=== PATIENT | female | born 1995 | race Caucasian/White ===

== ENCOUNTER 2018-12-17 11:53 | Inpatient (IN) | payer OTHER ==
[2018-12-17 12:50] LABS: ADD UMIC YES; UR ASCORBIC ACID 20 mg/dL (NEGATIVE); UR BACTERIA FEW /HPF (NONE SEEN); UR BILIRUBIN (Dip) NEGATIVE (NEGATIVE); UR BLOOD (Dip) 2+ mg/dL (NEGATIVE); UR CLARITY SLIGHTLY CLOUDY (CLEAR); UR COLOR YELLOW (YELLOW); UR GLUCOSE (Dip) NEGATIVE (NEGATIVE); UR KETONES (Dip) NEGATIVE (NEGATIVE); UR LEUKOCYTE ESTERASE (Dip) 2+ Leu/ul (NEGATIVE); UR MUCUS FEW /HPF (NONE SEEN); UR NITRITE (Dip) NEGATIVE (NEGATIVE); UR RBC 1 /HPF (0-5); UR SQUAMOUS EPITHELIAL CELL FEW /HPF (FEW); UR TOTAL PROTEIN (Dip) NEGATIVE (NEGATIVE); UR UROBILINOGEN (Dip) NEGATIVE (NEGATIVE); UR WBC 3 /HPF (0-5)
[2018-12-17] MEDS ORDERED: BETAMET NA PHOS/AC(6 MG/ML) 2 ML INJ SYG IM (14:00)
[2018-12-17] MEDS ORDERED: CA GLUCONATE (GM) 10% 10ML INJ IV (14:30)
[2018-12-17 15:00] LABS: ADD MAN DIFF? NO
[2018-12-17 15:02] LABS: BASOPHILS % 0.3 % (0.0-2.0); EOSINOPHILS # 0.1 10^3/ul (0.0-0.5); EOSINOPHILS % 0.8 % (0.0-7.0); HEMATOCRIT 34.4 % (37.0-47.0); HEMOGLOBIN 11.6 g/dl (12.0-16.0); LYMPHOCYTES # 1.6 10^3/ul (0.8-2.9); LYMPHOCYTES % 26.1 % (15.0-51.0); MEAN CORPUSCULAR HEMOGLOBIN 31.8 pg (29.0-33.0); MEAN CORPUSCULAR HGB CONC 33.7 g/dl (32.0-37.0); MEAN CORPUSCULAR VOLUME 94.2 fl (82.0-101.0); MEAN PLATELET VOLUME 8.7 fl (7.4-10.4); MONOCYTE # 0.5 10^3/ul (0.3-0.9); MONOCYTES % 7.2 % (0.0-11.0); NEUTROPHIL # 4.1 10^3/ul (1.6-7.5); PLATELET COUNT 163 10^3/UL (140-415); RED BLOOD COUNT 3.65 10^6/ul (4.20-5.40)
[2018-12-17 15:02] LABS: WHITE BLOOD COUNT 6.3 10^3/ul (4.8-10.8)
[2018-12-17] MEDS: LACTATED RINGER'S 1,000 ML IV (15:20)
[2018-12-17 15:22] LABS: ALANINE AMINOTRANSFERASE 12 IU/L (13-69); ALBUMIN 3.4 g/dl (3.3-4.9); ALBUMIN/GLOBULIN RATIO 1.13; ALKALINE PHOSPHATASE 102 IU/L (42-121); ANION GAP 7 (5-13); ASPARTATE AMINO TRANSFERASE 15 IU/L (15-46); BILIRUBIN,INDIRECT 0.5 mg/dl (0-1.1); BILIRUBIN,TOTAL 0.5 mg/dl (0.2-1.3); BLOOD UREA NITROGEN 9 mg/dl (7-20); CALCIUM 9.3 mg/dl (8.4-10.2); CARBON DIOXIDE 23 mmol/L (21-31); CHLORIDE 107 mmol/L (97-110); Estimated GFR > 60 mL/min (>60); GLUCOSE 87 mg/dl (70-220); POTASSIUM 3.9 mmol/L (3.5-5.1); SODIUM 137 mmol/L (135-144); TOTAL PROTEIN 6.4 g/dl (6.1-8.1)
[2018-12-17] MEDS: MAGNESIUM SULFATE 4 GM/100 ML 100 ML IV (15:28)
[2018-12-17] MEDS: MAGNESIUM SULFATE 20 GM/500 ML 500 ML IV (15:34)
[2018-12-17] MEDS: BETAMET NA PHOS/AC(6 MG/ML) 2 ML INJ SYG IM (16:23)
[2018-12-17] MEDS: NITROFURANTOIN (SR) 100 MG CAP PO (22:02)
[2018-12-18] MEDS: LACTATED RINGER'S 1,000 ML IV ×2 (01:50→13:36)
[2018-12-18] MEDS: MAGNESIUM SULFATE 20 GM/500 ML 500 ML IV ×3 (01:53→23:56)
[2018-12-18 09:02] LABS: MAGNESIUM 4.9 mg/dl (1.7-2.5)
[2018-12-18] MEDS: FERROUS SULFATE (EC) 325 MG TAB PO (09:53)
[2018-12-18] MEDS: PRENATAL VITAMIN PO (09:53)
[2018-12-18] MEDS: NITROFURANTOIN (SR) 100 MG CAP PO (09:53)
[2018-12-18] MEDS: ONDANSETRON 4 MG INJ IV (12:03)
[2018-12-18 12:34] LABS: MAGNESIUM 5.2 mg/dl (1.7-2.5)
[2018-12-18] MEDS: ACETAMINOPHEN 325 MG TAB PO (12:38)
[2018-12-18] MEDS: BETAMET NA PHOS/AC(6 MG/ML) 2 ML INJ SYG IM (15:56)
[2018-12-18 18:44] LABS: MAGNESIUM 5.1 mg/dl (1.7-2.5)
[2018-12-19 00:56] LABS: MAGNESIUM 4.9 mg/dl (1.7-2.5)
[2018-12-19] MEDS: LACTATED RINGER'S 1,000 ML IV (02:28)
[2018-12-19] MEDS: MAGNESIUM SULFATE 20 GM/500 ML 500 ML IV ×2 (06:20→10:37)
[2018-12-19 07:11] LABS: MAGNESIUM 5.2 mg/dl (1.7-2.5)
[2018-12-19] MEDS: PRENATAL VITAMIN PO (09:22)
[2018-12-19] MEDS: FERROUS SULFATE (EC) 325 MG TAB PO (09:22)
[2018-12-19 12:58] LABS: MAGNESIUM 5.2 mg/dl (1.7-2.5)
== END 2018-12-19 17:35 | disposition home or self-care (01) | DRG 832 ==
LOC: OBT 11:53 → PP1 12-18 06:13 → L-D 11:53 → OBT 14:28 → L-D 14:06
DX: O47.03 False labor before 37 completed weeks of gestation, third trimester (principal); O26.873 Cervical shortening, third trimester; Z3A.33 33 weeks gestation of pregnancy
CPT/HCPCS: 76817; 76818; 80053; 81001; 83735; 85025; 87086

== ENCOUNTER 2019-01-20 16:15 | Inpatient (IN) | payer OTHER ==
[2019-01-20 17:47] LABS: ADD UMIC YES; UR ASCORBIC ACID NEGATIVE (NEGATIVE); UR BILIRUBIN (Dip) NEGATIVE (NEGATIVE); UR BLOOD (Dip) NEGATIVE (NEGATIVE); UR CLARITY SLIGHTLY CLOUDY (CLEAR); UR COLOR STRAW (YELLOW); UR GLUCOSE (Dip) NEGATIVE (NEGATIVE); UR KETONES (Dip) NEGATIVE (NEGATIVE); UR LEUKOCYTE ESTERASE (Dip) 2+ Leu/ul (NEGATIVE); UR NITRITE (Dip) NEGATIVE (NEGATIVE); UR RBC 1 /HPF (0-5); UR SPECIFIC GRAVITY (Dip) 1.006 (1.003-1.030); UR SQUAMOUS EPITHELIAL CELL FEW /HPF (FEW); UR TOTAL PROTEIN (Dip) NEGATIVE (NEGATIVE); UR UROBILINOGEN (Dip) NEGATIVE (NEGATIVE); UR WBC 16 /HPF (0-5)
[2019-01-20] MEDS ORDERED: CARBOPROST 250 MCG INJ IM (20:30)
[2019-01-20] MEDS ORDERED: LIDOCAINE 1% (MPF) 30 ML INJ INJ (20:30)
[2019-01-20] MEDS ORDERED: IBUPROFEN 600 MG TAB PO (20:30)
[2019-01-20] MEDS ORDERED: MISOPROSTOL 200 MCG TAB PR (20:30)
[2019-01-20] MEDS ORDERED: METHYLERGONOVINE 0.2 MG INJ IM (20:30)
[2019-01-20] MEDS ORDERED: OXYTOCIN 30 UNITS/LR 500 ML IV (20:30)
[2019-01-20] MEDS: LACTATED RINGER'S 1,000 ML IV ×2 (21:29→23:00)
[2019-01-20 21:51] LABS: ADD MAN DIFF? NO
[2019-01-20 21:56] LABS: BASOPHILS % 0.3 % (0.0-2.0); EOSINOPHILS % 0.6 % (0.0-7.0); HEMATOCRIT 37.6 % (37.0-47.0); HEMOGLOBIN 12.9 g/dl (12.0-16.0); LYMPHOCYTES # 1.9 10^3/ul (0.8-2.9); LYMPHOCYTES % 27.2 % (15.0-51.0); MEAN CORPUSCULAR HEMOGLOBIN 31.6 pg (29.0-33.0); MEAN CORPUSCULAR HGB CONC 34.3 g/dl (32.0-37.0); MEAN CORPUSCULAR VOLUME 92.2 fl (82.0-101.0); MEAN PLATELET VOLUME 9.4 fl (7.4-10.4); MONOCYTE # 0.5 10^3/ul (0.3-0.9); MONOCYTES % 6.8 % (0.0-11.0); NEUTROPHIL # 4.5 10^3/ul (1.6-7.5); NEUTROPHILS % 64.7 % (39.0-77.0); PLATELET COUNT 173 10^3/UL (140-415); RED BLOOD COUNT 4.08 10^6/ul (4.20-5.40); RED CELL DISTRIBUTION WIDTH 13.1 % (11.5-14.5)
[2019-01-20 21:56] LABS: WHITE BLOOD COUNT 6.9 10^3/ul (4.8-10.8)
[2019-01-20 22:16] LABS: PROTIME 12.3 Sec (11.9-14.9)
[2019-01-20 22:17] LABS: PARTIAL THROMBOPLASTIN TIME 25.8 Sec (23.0-35.0)
[2019-01-20] MEDS: CEFAZOLIN 2 GM/50 ML (PMX) 50 ML IVPB (22:37)
[2019-01-20 22:42] LABS: HEPATITIS B SURFACE ANTIGEN NEGATIVE (NEGATIVE)
[2019-01-21] MEDS: CEPHALEXIN 500 MG CAP PO ×4 (00:02→19:02)
[2019-01-21] MEDS: LACTATED RINGER'S 1,000 ML IV ×3 (06:58→18:03)
[2019-01-21] MEDS: OXYTOCIN 30 UNITS/LR 500 ML IV ×3 (08:31→22:39)
[2019-01-21] MEDS: BUTORPHANOL 2 MG INJ IV (18:02)
[2019-01-21] MEDS ORDERED: FENTAnyl 2MCG/ML-ROPIV 0.2% 100 ML (18:29)
[2019-01-21] MEDS ORDERED: ONDANSETRON 4 MG INJ IV ×2 (18:30→23:30)
[2019-01-21] MEDS ORDERED: FENTAnyl 2MCG/ML-ROPIV 0.2% 100 ML BAG EPI (18:30)
[2019-01-21] MEDS ORDERED: NALOXONE (0.4 MG/ML) INJ IV (18:30)
[2019-01-21] MEDS ORDERED: DIPHENHYDRAMINE 50 MG INJ IV (18:30)
[2019-01-21 20:20] LABS: RAPID PLASMA REAGIN NONREACTIVE (NR)
[2019-01-21] MEDS: MINERAL OIL LIGHT 10 ML VIAL TOP (22:18)
[2019-01-21] MEDS ORDERED: CARBOPROST 250 MCG INJ IM (23:30)
[2019-01-21] MEDS ORDERED: ACETAMINOPHEN 325 MG TAB PO (23:30)
[2019-01-21] MEDS ORDERED: MISOPROSTOL 200 MCG TAB PR (23:30)
[2019-01-21] MEDS ORDERED: OXYTOCIN 30 UNITS/LR 500 ML IV (23:30)
[2019-01-21] MEDS ORDERED: METHYLERGONOVINE 0.2 MG INJ IM (23:30)
[2019-01-21] MEDS ORDERED: OXYCODONE/ASPIRIN (4.88/325) TAB PO (23:30)
[2019-01-21] MEDS ORDERED: NACL 0.9% 3 ML SYG IV (23:30)
[2019-01-22] MEDS: IBUPROFEN 600 MG TAB PO ×5 (00:29→23:45)
[2019-01-22] MEDS: OXYTOCIN 30 UNITS/LR 500 ML IV (02:46)
[2019-01-22] MEDS: LANOLIN HPA 1 PKT TOP (02:47)
[2019-01-22] MEDS: WITCH HAZEL/GLYCERIN PAD PR (02:47)
[2019-01-22] MEDS: BENZOCAINE 20% 56 ML SPRAY TOP (02:47)
[2019-01-22 08:14] LABS: ADD MAN DIFF? NO
[2019-01-22 08:17] LABS: WHITE BLOOD COUNT 11.3 10^3/ul (4.8-10.8)
[2019-01-22 08:17] LABS: BASOPHILS % 0.2 % (0.0-2.0); EOSINOPHILS % 0.4 % (0.0-7.0); HEMATOCRIT 36.2 % (37.0-47.0); HEMOGLOBIN 12.6 g/dl (12.0-16.0); LYMPHOCYTES # 1.9 10^3/ul (0.8-2.9); LYMPHOCYTES % 16.5 % (15.0-51.0); MEAN CORPUSCULAR HEMOGLOBIN 31.8 pg (29.0-33.0); MEAN CORPUSCULAR HGB CONC 34.8 g/dl (32.0-37.0); MEAN CORPUSCULAR VOLUME 91.4 fl (82.0-101.0); MEAN PLATELET VOLUME 9.3 fl (7.4-10.4); MONOCYTE # 0.7 10^3/ul (0.3-0.9); MONOCYTES % 6.4 % (0.0-11.0); NEUTROPHIL # 8.6 10^3/ul (1.6-7.5); NEUTROPHILS % 76.2 % (39.0-77.0); PLATELET COUNT 157 10^3/UL (140-415); RED BLOOD COUNT 3.96 10^6/ul (4.20-5.40); RED CELL DISTRIBUTION WIDTH 12.8 % (11.5-14.5)
[2019-01-22] MEDS: SENNA/DOCUSATE NA (8.6MG/50MG) TAB PO ×2 (08:45→23:44)
[2019-01-23] MEDS: IBUPROFEN 600 MG TAB PO ×2 (05:37→12:47)
[2019-01-23] MEDS: SENNA/DOCUSATE NA (8.6MG/50MG) TAB PO (08:32)
[2019-01-23] MEDS: MEASLES,MUMPS,RUBELLA VACCINE INJ SC* (09:16)
[2019-01-23] MEDS: OXYCODONE/ASPIRIN (4.88/325) TAB PO (13:04)
== END 2019-01-23 15:18 | disposition home or self-care (01) | DRG 807 ==
LOC: OBT 16:15 → L-D 01-21 11:01 → PP1 01-22 00:24 → L-D 16:20 → OBT 20:40 → L-D 20:40
PROC: 10E0XZZ Delivery of Products of Conception, External Approach (ICD-10-PCS; principal; 2019-01-21)
PROC: 0KQM0ZZ Repair Perineum Muscle, Open Approach (ICD-10-PCS; 2019-01-21)
DX: O70.1 Second degree perineal laceration during delivery (principal); Z37.0 Single live birth; Z3A.38 38 weeks gestation of pregnancy
CPT/HCPCS: 62322; 76815; 76818; 81001; 85025; 85610; 85730; 86592; 86850; 86900; 86901; 87086; 87340; 99464